=== PATIENT | female | born 1955 | race Caucasian/White ===

== ENCOUNTER → 2017-12-06 | Outpatient (CLI) | payer OTHER, MEDICARE ==
[2017-12-06 11:27] LABS: ALBUMIN 3.8 GM/DL (3.2-5.2); ALBUMIN/GLOBULIN RATIO 1.09 (1.00-1.93); ALKALINE PHOSPHATASE 89 U/L (45-117); ALT/SGPT 34 U/L (12-78); ANION GAP 6 MEQ/L (8-16); AST/SGOT 30 U/L (7-37); BILIRUBIN,TOTAL 0.6 MG/DL (0.2-1.0); BLOOD UREA NITROGEN 19 MG/DL (7-18); CALCIUM LEVEL 9.1 MG/DL (8.8-10.2); CARBON DIOXIDE LEVEL 32 MEQ/L (21-32); CHLORIDE LEVEL 104 MEQ/L (98-107); CREATININE FOR GFR 0.84 MG/DL (0.55-1.30); GLOMERULAR FILTRATION RATE > 60.0 (>45); GLUCOSE, FASTING 145 MG/DL (70-100); LDH LACTATE DEHYDROGENASE 158 U/L (84-246); PHOSPHORUS LEVEL 3.4 MG/DL (2.5-4.9); POTASSIUM SERUM 3.8 MEQ/L (3.5-5.1); SODIUM LEVEL 142 MEQ/L (136-145); TOTAL PROTEIN 7.3 GM/DL (6.4-8.2)
[2017-12-06 11:31] LABS: ESTIMATED AVERAGE GLUCOSE 194 MG/DL (60-110); HEMOGLOBIN A1c 8.4 %
== END ==
LOC: M LAB 09:59
DX: E11.40 Type 2 diabetes mellitus with diabetic neuropathy, unspecified (principal); I10 Essential (primary) hypertension
CPT/HCPCS: 83615

== ENCOUNTER → 2018-09-10 | Outpatient (REF) | payer OTHER ==
[2018-09-10 17:00] LABS: APPEARANCE, URINE CLEAR (CLEAR); BACTERIA, URINE AUTO NEGATIVE (NEGATIVE); BILIRUBIN, URINE AUTO NEGATIVE (NEGATIVE); BLOOD, URINE BLOOD NEGATIVE (NEGATIVE); COLOR, URINE YELLOW (YELLOW); GLUCOSE, URINE (UA) AUTO NEGATIVE (NEGATIVE); KETONE, URINE AUTO NEGATIVE (NEGATIVE); LEUKOCYTE ESTERASE, URINE AUTO NEGATIVE (NEGATIVE); MUCUS, URINE SMALL (NEGATIVE); NITRITE, URINE AUTO NEGATIVE (NEGATIVE); PROTEIN, URINE AUTO NEGATIVE (NEGATIVE); RBC, URINE AUTO 2 /HPF (0-3); SQUAMOUS EPITHELIAL CELL UR AU 0 /HPF (0-6); UROBILINOGEN, URINE AUTO 0.2 mg/dL (0.0-2.0); WBC, URINE AUTO 1 /HPF (0-3)
== END ==
LOC: M LAB REF 16:07
DX: R39.15 Urgency of urination (principal); R35.0 Frequency of micturition

== ENCOUNTER → 2018-12-18 | Outpatient (REF) | payer MEDICARE ==
[2018-12-18 12:58] LABS: CREATININE, URINE 65.4 MG/DL; MALB URINE SIEMENS 82.4 MG/L; MAU/CREAT RATIO 125.9 MCG/MG (0.0-30.0)
[2018-12-18 13:54] LABS: ALBUMIN 3.9 GM/DL (3.2-5.2); ALT/SGPT 37 U/L (12-78); BILIRUBIN,TOTAL 0.6 MG/DL (0.2-1.0); BLOOD UREA NITROGEN 12 MG/DL (7-18); CALCIUM LEVEL 9.3 MG/DL (8.8-10.2); CARBON DIOXIDE LEVEL 27 MEQ/L (21-32); CHLORIDE LEVEL 103 MEQ/L (98-107); CHOLESTEROL LEVEL 211 MG/DL (<200); CHOLESTEROL RISK RATIO 4.489 (<5); CREATININE FOR GFR 0.79 MG/DL (0.55-1.30); GLOMERULAR FILTRATION RATE > 60.0 (>45); GLUCOSE, FASTING 187 MG/DL (70-100); HDL CHOLESTEROL 47 MG/DL (>40); LDL CHOLESTEROL 139 MG/DL (<100); NON-HDL-C 164 MG/DL; POTASSIUM SERUM 3.7 MEQ/L (3.5-5.1); SODIUM LEVEL 141 MEQ/L (136-145); TOTAL PROTEIN 7.5 GM/DL (6.4-8.2); TRIGLYCERIDES LEVEL 126 MG/DL (<150)
[2018-12-18 14:45] LABS: HEMOGLOBIN A1c 10.5 %
== END ==
LOC: M SFHCPLAZ 09:46
PROVIDERS: ATTEND Family Medicine
DX: I10 Essential (primary) hypertension (principal); E11.9 Type 2 diabetes mellitus without complications; E78.2 Mixed hyperlipidemia

== ENCOUNTER → 2019-01-22 | Outpatient (REF) | payer OTHER ==
[2019-01-22 14:12] LABS: MAU/CREAT RATIO 35.9 MCG/MG (0.0-30.0)
== END ==
LOC: M SFHCPLAZ 10:12
PROVIDERS: ATTEND Family Medicine
DX: R80.9 Proteinuria, unspecified (principal)

== ENCOUNTER → 2019-04-09 | Outpatient (CLI) | payer OTHER | LOC: M LAB 15:44 | PROVIDERS: ATTEND Podiatrist Foot & Ankle Surgery | DX: M10.9 Gout, unspecified (principal) ==

== ENCOUNTER → 2019-04-10 | Outpatient (REF) | payer OTHER ==
[2019-04-10 11:04] LABS: BLOOD UREA NITROGEN 24 MG/DL (7-18); CALCIUM LEVEL 8.8 MG/DL (8.8-10.2); CARBON DIOXIDE LEVEL 29 MEQ/L (21-32); CHLORIDE LEVEL 105 MEQ/L (98-107); CREATININE FOR GFR 0.96 MG/DL (0.55-1.30); GLOMERULAR FILTRATION RATE > 60.0 (>45); GLUCOSE, FASTING 256 MG/DL (70-100); POTASSIUM SERUM 3.6 MEQ/L (3.5-5.1); SODIUM LEVEL 142 MEQ/L (136-145)
[2019-04-10 11:05] LABS: HEMOGLOBIN A1c 12.2 %
== END ==
LOC: M SFHCPLAZ 08:20
PROVIDERS: ATTEND Family Medicine
DX: E11.9 Type 2 diabetes mellitus without complications (principal); I10 Essential (primary) hypertension

== ENCOUNTER 2019-05-22 16:17 | Emergency (ER) | payer OTHER ==
[~2019-05-22] VITALS: Ht 170.2 cm; Wt 110.0 kg
[2019-05-22] MEDS ORDERED: AMLO5TAB6 (16:53)
[2019-05-22] MEDS ORDERED: MONT10TA2 (16:53)
[2019-05-22] MEDS ORDERED: OCUVCAP2 PO (16:53)
[2019-05-22] MEDS ORDERED: METO1TAB32 (16:53)
[2019-05-22] MEDS ORDERED: LOSA100T5 (16:53)
[2019-05-22] MEDS ORDERED: METF-791 (16:53)
[2019-05-22] MEDS ORDERED: DULO1CAP6 (16:53)
[2019-05-22] MEDS ORDERED: ROSU5TAB5 (16:53)
[2019-05-22] MEDS ORDERED: VITA200021 PO (16:53)
[2019-05-22] MEDS ORDERED: METOPROLOL SUCC *XL* 25MG TAB (TopROL *XL*) PO ONE (17:30)
[2019-05-22] MEDS ORDERED: amLODIPine 5 MG TAB PO ONE (17:30)
[2019-05-22 17:32] VITALS: BP 178/77
[2019-05-22 17:46] LABS: HEMATOCRIT 40.8 % (36.0-47.0); HEMOGLOBIN 13.2 g/dl (12.0-15.5); MEAN CORPUSCULAR HGB CONC 32.4 g/dl (32.0-36.5); MEAN CORPUSCULAR VOLUME 83.6 fl (80.0-96.0); PLATELET COUNT, AUTOMATED 183 10^3/uL (150-450); RED BLOOD COUNT 4.88 10^6/uL (4.00-5.40); WHITE BLOOD COUNT 7.9 10^3/uL (4.0-10.0)
[2019-05-22] MEDS ORDERED: ACETAMINOPHEN TAB 650MG DOSE (2X325MG) PO ONE (19:30)
--- NOTE | 2019-05-22 19:40 | REP ---
REASON: Hypertension. The technique utilized in obtaining the radiograph has magnified the cardiac silhouette and accentuated the interstitial markings. The superior mediastinal structures are midline. The cardiac silhouette is unremarkable in size, shape, and position. The diaphragmatic surfaces of the lungs are regular, and the costophrenic angles are clear. The pulmonary saxena are clear. The imaged osseous structures are intact. IMPRESSION: There is no acute cardiopulmonary disease. Electronically Signed by Rolan Mendez DO 05/23/2019 08:59 A
[2019-05-22 21:32] VITALS: BP 172/70
--- NOTE | 2019-05-23 08:09 | ECGEPIP ---
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
== END 2019-05-22 21:34 | disposition home or self-care (01) ==
LOC: M ED 16:17
DX: I10 Essential (primary) hypertension (principal); E11.9 Type 2 diabetes mellitus without complications; J45.909 Unspecified asthma, uncomplicated; E78.5 Hyperlipidemia, unspecified; F43.10 Post-traumatic stress disorder, unspecified; Z79.899 Other long term (current) drug therapy; Z79.84 Long term (current) use of oral hypoglycemic drugs; Z88.0 Allergy status to penicillin; Z88.1 Allergy status to other antibiotic agents; Z88.2 Allergy status to sulfonamides; Z88.5 Allergy status to narcotic agent

== ENCOUNTER → 2019-07-09 | Outpatient (REF) | payer OTHER ==
[~2019-07-09] MED LIST: AMLO5TAB6; DULO1CAP6; LOSA100T5; METF-791; METO1TAB32; MONT10TA2; OCUVCAP2 PO; ROSU5TAB5; VITA200021 PO
== END ==
LOC: M SFHCPLAZ 10:03
PROVIDERS: ATTEND Family Medicine
DX: L91.8 Other hypertrophic disorders of the skin (principal)

== ENCOUNTER → 2019-07-10 | Outpatient (REF) | payer OTHER ==
[2019-07-10 17:36] LABS: HEMOGLOBIN A1c 9.1 %
== END ==
LOC: M SFHCPLAZ 10:15
PROVIDERS: ATTEND Family Medicine
DX: E11.9 Type 2 diabetes mellitus without complications (principal)

== ENCOUNTER → 2019-09-15 | Outpatient (CLI) | payer OTHER ==
--- NOTE | 2019-09-15 10:23 | REP ---
ULTRASOUND RIGHT UPPER POSTERIOR CHEST WALL: Real-time sonographic evaluation of right upper posterior chest wall performed at the site of the palpable lump. No discrete cystic or solid mass is seen. At the location of the palpable lump the subcutaneous fat appears diffusely thickened in this region but there is no sonographic evidence of focal lipoma or other mass. IMPRESSION: At the site of the palpable lump in the right posterior chest wall superiorly, there is thickened subcutaneous fat layer in this region without a focal encapsulated solid mass, cyst or fluid collection. Electronically Signed by Melquiades Roche MD 09/15/2019 12:01 P
== END ==
LOC: M RAD 09:26
PROVIDERS: ATTEND Family Medicine
DX: R22.2 Localized swelling, mass and lump, trunk (principal)

== ENCOUNTER → 2019-10-12 | Outpatient (CLI) | payer OTHER ==
[2019-10-12 14:55] LABS: HEMOGLOBIN A1c 8.5 %
== END ==
LOC: M LAB 11:24
PROVIDERS: ATTEND Family Medicine
DX: E11.9 Type 2 diabetes mellitus without complications (principal)

== ENCOUNTER 2019-11-17 16:23 | Emergency (ER) | payer OTHER ==
[~2019-11-17] VITALS: Ht 172.7 cm; Wt 110.6 kg
[2019-11-17] MEDS ORDERED: BUPR150T3 (16:31)
[2019-11-17] MEDS ORDERED: TRES1INJ (16:31)
--- NOTE | 2019-11-17 17:58 | REPVR ---
PROCEDURE INFORMATION: Exam: CT Head Without Contrast Exam date and time: 11/17/2019 5:34 PM Age: 64 years old Clinical indication: Pain; Headache; Additional info: Head neck pain after injury TECHNIQUE: Imaging protocol: Computed tomography of the head without contrast. Radiation optimization: All CT scans at this facility use at least one of these dose optimization techniques: automated exposure control; mA and/or kV adjustment per patient size (includes targeted exams where dose is matched to clinical indication); or iterative reconstruction. COMPARISON: No relevant prior studies available. FINDINGS: Brain: No acute intracranial hemorrhage, cerebral edema, or midline shift. Ventricles: No hydrocephalus. Bones/joints: No acute fracture. Sinuses: No acute sinusitis. Mastoid air cells: Visualized mastoid air cells are well aerated. Soft tissues: Unremarkable. IMPRESSION: No acute intracranial abnormality. Electronically signed by: Zion Howell On 11/17/2019 17:58:09 PM
--- NOTE | 2019-11-17 18:01 | REPVR ---
PROCEDURE INFORMATION: Exam: CT Cervical Spine Without Contrast Exam date and time: 11/17/2019 5:34 PM Age: 64 years old Clinical indication: Neck pain; Additional info: Head neck pain after injury TECHNIQUE: Imaging protocol: Computed tomography images of the cervical spine without contrast. Radiation optimization: All CT scans at this facility use at least one of these dose optimization techniques: automated exposure control; mA and/or kV adjustment per patient size (includes targeted exams where dose is matched to clinical indication); or iterative reconstruction. COMPARISON: No relevant prior studies available. FINDINGS: Vertebrae: No acute fracture. Normal alignment. Discs/Spinal canal/Neural foramina: Moderate degenerative changes of the cervical spine are present. There is no severe spinal canal stenosis. Multilevel neural foraminal narrowing from uncinate spurring and facet arthropathy is noted. Soft tissues: Unremarkable. Lungs: Lung apices are normal. IMPRESSION: No acute abnormality. Electronically signed by: Zion Howell On 11/17/2019 18:01:10 PM
[2019-11-17 21:12] VITALS: BP 150/73
== END 2019-11-17 21:20 | disposition home or self-care (01) ==
LOC: M ED 16:23
DX: S06.0X0A Concussion without loss of consciousness, initial encounter (principal); S16.1XXA Strain of muscle, fascia and tendon at neck level, initial encounter; V00.221A Fall from sled, initial encounter; Y92.89 Other specified places as the place of occurrence of the external cause; Y93.23 Activity, snow (alpine) (downhill) skiing, snowboarding, sledding, tobogganing and snow tubing; E11.9 Type 2 diabetes mellitus without complications; I10 Essential (primary) hypertension; Z79.899 Other long term (current) drug therapy; Z79.4 Long term (current) use of insulin; Z88.0 Allergy status to penicillin; Z88.1 Allergy status to other antibiotic agents; Z88.2 Allergy status to sulfonamides; Z88.5 Allergy status to narcotic agent; Z88.8 Allergy status to other drugs, medicaments and biological substances

== ENCOUNTER → 2020-01-12 | Outpatient (REF) | payer OTHER ==
[~2020-01-12] MED LIST changes: +BUPR150T3; -MONT10TA2; +MONT10TA4; +TRES1INJ
[2020-01-12 18:25] LABS: BLOOD UREA NITROGEN 12 MG/DL (7-18); CALCIUM LEVEL 8.9 MG/DL (8.8-10.2); CARBON DIOXIDE LEVEL 28 MEQ/L (21-32); CHLORIDE LEVEL 104 MEQ/L (98-107); CREATININE FOR GFR 0.93 MG/DL (0.55-1.30); GLOMERULAR FILTRATION RATE > 60.0 (>45); GLUCOSE, FASTING 418 MG/DL (70-100); POTASSIUM SERUM 4.1 MEQ/L (3.5-5.1); SODIUM LEVEL 140 MEQ/L (136-145)
== END ==
LOC: M SFHCPLAZ 14:34
PROVIDERS: ATTEND Family Medicine
DX: E11.9 Type 2 diabetes mellitus without complications (principal); I10 Essential (primary) hypertension

== ENCOUNTER → 2020-04-14 | Outpatient (REF) | payer OTHER ==
[~2020-04-14] MED LIST changes: -METF-791; +METF-838
[2020-04-14 12:28] LABS: ALBUMIN 3.7 GM/DL (3.2-5.2); ALT/SGPT 48 U/L (12-78); BILIRUBIN,TOTAL 0.9 MG/DL (0.2-1.0); BLOOD UREA NITROGEN 16 MG/DL (7-18); CALCIUM LEVEL 9.9 MG/DL (8.8-10.2); CARBON DIOXIDE LEVEL 28 MEQ/L (21-32); CHLORIDE LEVEL 106 MEQ/L (98-107); CHOLESTEROL LEVEL 183 MG/DL (<200); CHOLESTEROL RISK RATIO 4.575 (<5); GLOMERULAR FILTRATION RATE > 60.0 (>45); GLUCOSE, FASTING 236 MG/DL (70-100); HDL CHOLESTEROL 40 MG/DL (>40); LDL CHOLESTEROL 116 MG/DL (<100); NON-HDL-C 143 MG/DL; POTASSIUM SERUM 4.2 MEQ/L (3.5-5.1); SODIUM LEVEL 138 MEQ/L (136-145); TOTAL PROTEIN 7.6 GM/DL (6.4-8.2); TRIGLYCERIDES LEVEL 137 MG/DL (<150)
[2020-04-14 13:09] LABS: MAU/CREAT RATIO 181.6 MCG/MG (0.0-30.0)
[2020-04-14 13:24] LABS: HEMOGLOBIN A1c 9.6 %
== END ==
LOC: M SFHCPLAZ 08:39
PROVIDERS: ATTEND Family Medicine
DX: I10 Essential (primary) hypertension (principal); E78.2 Mixed hyperlipidemia; E11.9 Type 2 diabetes mellitus without complications

== ENCOUNTER → 2020-07-13 | Outpatient (CLI) | payer MEDICARE, OTHER ==
[~2020-07-13] MED LIST changes: +AMLO1TAB24; -AMLO5TAB6
[2020-07-13 14:48] LABS: HEMOGLOBIN A1c 9.9 %
== END ==
LOC: M PLALAB 10:05
PROVIDERS: ATTEND Family Medicine
DX: E11.9 Type 2 diabetes mellitus without complications (principal); Z79.84 Long term (current) use of oral hypoglycemic drugs

== ENCOUNTER → 2020-08-29 | Outpatient (REF) | payer MEDICARE | LOC: M SFHCPLAZ 09:58 | PROVIDERS: ATTEND Physician Assistant | DX: N30.01 Acute cystitis with hematuria (principal) ==

== ENCOUNTER → 2020-09-27 | Outpatient (CLI) | payer MEDICARE ==
[~2020-09-27] MED LIST changes: -MONT10TA4; +MONT5TAB2
--- NOTE | 2020-09-28 09:16 | REPMRS ---
Patient History The patient states she has not had a clinical breast exam in over a year. Patient is postmenopausal and is nulliparous. No known family history of cancer. Digital Woman Screen Mammo: September 27, 2020 - Exam #: [id number] Bilateral CC and MLO view(s) were taken. Technologist: Flor Beltran, Technologist Prior study comparison: August 06, 2017, bilateral digital mammo screening bilat, performed at Dr. Oli Jeff [facility]. June 06, 2016, bilateral digital mammo screening bilat, performed at Dr. Oli Jeff [facility]. FINDINGS: There are scattered fibroglandular densities. The Volpara volumetric breast density category is:B. There has been no change in the appearance of the mammogram from the prior studies. There is a mild amount of scattered fibroglandular density which is fairly symmetric. There is no interval development of dominant mass, architectural distortion, or grouped microcalcification suggestive of malignancy. 3-D tomosynthesis shows no additional findings. Assessment: BI-RADS/ACR category 1 mammogram. Negative Mammogram. Recommendation Routine screening mammogram of both breasts in 1 year (for women over age 40). This patient's [facility] Lifetime Breast Cancer Risk is estimated at 4.2 %. This mammogram was interpreted with the aid of an FDA-approved computer-aided dectection system. Electronically Signed By: Theodore Alarcon MD 09/28/20 0915
== END ==
LOC: M WHC 07:49
PROVIDERS: ATTEND Family Medicine
DX: Z12.31 Encounter for screening mammogram for malignant neoplasm of breast (principal)

== ENCOUNTER → 2020-12-16 | Outpatient (REF) | payer MEDICARE, OTHER ==
[~2020-12-16] MED LIST changes: +AMLO1TAB25 PO; +AZO-95TA3 PO; +BUPR150T12; -BUPR150T3; +CIPR-249 PO; +D31000TA2 PO; -DULO1CAP6; +DULO1CAP6 PO; +LOSA100T50 PO; -METF-838; +METF-838 PO; -METO1TAB32; +METO1TAB32 PO; +MONT10TA10 PO; -MONT5TAB2; +NOVOINJ3 SC; -ROSU5TAB5; +ROSU5TAB5 PO; -TRES1INJ; +TRES1INJ SC
[2020-12-16 14:16] LABS: BLOOD UREA NITROGEN 15 MG/DL (7-18); CALCIUM LEVEL 9.6 MG/DL (8.8-10.2); CARBON DIOXIDE LEVEL 29 MEQ/L (21-32); CHLORIDE LEVEL 107 MEQ/L (98-107); CREATININE FOR GFR 0.87 MG/DL (0.55-1.30); GLOMERULAR FILTRATION RATE > 60.0 (>45); GLUCOSE, FASTING 151 MG/DL (70-100); POTASSIUM SERUM 3.8 MEQ/L (3.5-5.1); SODIUM LEVEL 141 MEQ/L (136-145)
[2020-12-16 14:49] LABS: HEMOGLOBIN A1c 10.1 %
[2020-12-16 14:53] LABS: MAU/CREAT RATIO 446.5 MCG/MG (0.0-30.0)
== END ==
LOC: M PLALAB 11:07
PROVIDERS: ATTEND Family Medicine
DX: R80.9 Proteinuria, unspecified (principal); E11.9 Type 2 diabetes mellitus without complications; I10 Essential (primary) hypertension

== ENCOUNTER 2020-12-18 15:28 | Inpatient (IN) | payer MEDICARE, OTHER ==
[~2020-12-18] VITALS: Ht 170.2 cm; Wt 110.1 kg
[~2020-12-18 15:28] MED LIST changes: -AMLO1TAB25 PO; -AZO-95TA3 PO; -CIPR-249 PO; -D31000TA2 PO; -LOSA100T50 PO; -NOVOINJ3 SC
[2020-12-18] MEDS ORDERED: MORPHINE 4 MG/ML 1ML VIAL/SYRINGE (J2270) IV ONE (16:00)
[2020-12-18] MEDS ORDERED: ACETAMINOPHEN TAB 650MG DOSE (2X325MG) PO ONE (16:05)
[2020-12-18 16:24] LABS: BASO % 0.4 % (0.0-1.0); EOS % 0.4 % (0.0-3.0); HEMATOCRIT 40.3 % (36.0-47.0); HEMOGLOBIN 12.8 g/dl (12.0-15.5); LYMPH # 1.3 10^3/uL (1.5-5.0); LYMPH % 11.7 % (24.0-44.0); MEAN CORPUSCULAR HEMOGLOBIN 25.6 pg (27.0-33.0); MEAN CORPUSCULAR HGB CONC 31.8 g/dl (32.0-36.5); MEAN CORPUSCULAR VOLUME 80.6 fl (80.0-96.0); MONO # 0.5 10^3/uL (0.0-0.8); MONO % 4.6 % (2.0-8.0); NEUTROPHILS % 82.3 % (36.0-66.0); PLATELET COUNT, AUTOMATED 158 10^3/uL (150-450); WHITE BLOOD COUNT 10.9 10^3/uL (4.0-10.0)
--- NOTE | 2020-12-18 16:33 | REP ---
INDICATION: trauma COMPARISON: None. TECHNIQUE: AP, lateral, bilateral oblique views. FINDINGS: Lateral swelling and age-related degenerative changes noted. No acute fracture or dislocation is appreciated. Ankle mortise intact. IMPRESSION: Swelling and degenerative changes. No acute fracture or dislocation. <Electronically signed by Donny Kaminski > 12/18/20 [id number]
--- NOTE | 2020-12-18 16:34 | REP ---
INDICATION: trauma COMPARISON: None. TECHNIQUE: AP, lateral, bilateral oblique views of the left knee. FINDINGS: Age-related changes noted. No acute fracture or dislocation. No definite effusion. IMPRESSION: Age-related degenerative changes. No acute fracture or dislocation. <Electronically signed by Donny Kaminski > 12/18/20 [id number]
[2020-12-18 16:36] LABS: INR 1.08; PROTHROMBIN TIME 14.2 SECONDS (12.5-14.3)
[2020-12-18 16:37] LABS: PARTIAL THROMBOPLASTIN TIME 31.9 SECONDS (24.2-38.5)
[2020-12-18 16:46] LABS: ALBUMIN 3.5 GM/DL (3.2-5.2); ALT/SGPT 29 U/L (12-78); BILIRUBIN,DIRECT 0.3 MG/DL (0.0-0.2); BLOOD UREA NITROGEN 15 MG/DL (7-18); CALCIUM LEVEL 9.4 MG/DL (8.8-10.2); CARBON DIOXIDE LEVEL 25 MEQ/L (21-32); CHLORIDE LEVEL 106 MEQ/L (98-107); CK-MB VALUE MASS < 1.0 NG/ML (<3.6); CPK CREATINE PHOSPHOKINASE 48 U/L (26-192); CREATININE FOR GFR 0.94 MG/DL (0.55-1.30); FREE T4 1.02 NG/DL (0.76-1.46); GLOMERULAR FILTRATION RATE > 60.0 (>45); GLUCOSE, FASTING 234 MG/DL (70-100); LIPASE 61 U/L (73-393); MB/CK RELATIVE INDEX 2.08 (< OR =4); SODIUM LEVEL 138 MEQ/L (136-145); TOTAL PROTEIN 7.2 GM/DL (6.4-8.2); TROPONIN I < 0.02 NG/ML (< 0.10)
[2020-12-18] MEDS ORDERED: ISOVUE-370 76% 100ML VIAL As Ordered ONE (17:53)
--- NOTE | 2020-12-18 18:29 | REPVR ---
PROCEDURE INFORMATION: Exam: CT Chest With Contrast; Diagnostic Exam date and time: 12/18/2020 5:59 PM Age: 65 years old Clinical indication: Injury or trauma; Fall; Blunt trauma (contusions or hematomas) TECHNIQUE: Imaging protocol: Diagnostic computed tomography of the chest with contrast. Radiation optimization: All CT scans at this facility use at least one of these dose optimization techniques: automated exposure control; mA and/or kV adjustment per patient size (includes targeted exams where dose is matched to clinical indication); or iterative reconstruction. Contrast material: ISOVUE 370; Contrast volume: 100 ml; Contrast route: INTRAVENOUS (IV); COMPARISON: US Chest echo B 09/15/2019 9:42 AM FINDINGS: Lungs: Unremarkable. No consolidation. No masses. Pleural spaces: Unremarkable. No pneumothorax. No pleural effusion. Heart: Unremarkable. No cardiomegaly. No pericardial effusion. Pulmonary arteries: There are no pulmonary emboli. Aorta: There is no aortic dissection or aneurysm. Lymph nodes: Unremarkable. No enlarged lymph nodes. Liver: Examination of the liver demonstrates a lobular surface contour, and enlargement of the left and caudate lobes, findings consistent with cirrhosis. Spleen: There is fncu-wq-ihhcbaep splenomegaly with a maximum span of 15 centimeters. No focal abnormalities demonstrated. Bones/joints: The spine demonstrates mild degenerative changes. The spine demonstrates mild degenerative changes. Soft tissues: Unremarkable. IMPRESSION: 1. There is no aortic dissection or aneurysm. 2. There are no pulmonary emboli. 3. No acute infiltrates. 4. Hepatic cirrhosis. 5. There is wynn-ta-qdkoozhy splenomegaly. Electronically signed by: Lexx Rider On 12/18/2020 18:29:36 PM
--- NOTE | 2020-12-18 18:35 | REPVR ---
PROCEDURE INFORMATION: Exam: CT Abdomen And Pelvis With Contrast Exam date and time: 12/18/2020 5:59 PM Age: 65 years old Clinical indication: Injury or trauma; Fall; Blunt; Generalized TECHNIQUE: Imaging protocol: Computed tomography of the abdomen and pelvis with contrast. Radiation optimization: All CT scans at this facility use at least one of these dose optimization techniques: automated exposure control; mA and/or kV adjustment per patient size (includes targeted exams where dose is matched to clinical indication); or iterative reconstruction. Contrast material: ISOVUE 370; Contrast volume: 100 ml; Contrast route: INTRAVENOUS (IV); COMPARISON: No relevant prior studies available. FINDINGS: Liver: Examination of the liver demonstrates a lobular surface contour, and enlargement of the left and caudate lobes, findings consistent with cirrhosis. Gallbladder and bile ducts: Normal. No calcified stones. No ductal dilation. Pancreas: Normal. No ductal dilation. Spleen: There is moderate splenomegaly with a maximum span of 15 centimeters. No focal abnormalities demonstrated. Adrenal glands: Normal. No mass. Kidneys and ureters: Perinephric inflammatory changes on the left associated with mild dilatation of the left renal pelvis and a suggestion of hazy decreased density in the posteromedial renal parenchyma. Findings may be posttraumatic or indicate pyelonephritis in the appropriate clinical setting. Stomach and bowel: Unremarkable. No obstruction. No mucosal thickening. Appendix: No evidence of appendicitis. Intraperitoneal space: Unremarkable. No free air. No significant fluid collection. Vasculature: The aortoiliac vessels demonstrate mild atherosclerotic calcification. Lymph nodes: Unremarkable. No enlarged lymph nodes. Urinary bladder: There is thickening of the bladder wall with perivesicular inflammatory changes consistent with acute cystitis. Reproductive: There has been a hysterectomy. Bones/joints: Cuzn-lr-[id number] central spinal stenosis L2-L3, L3-L4. Bilateral facet joint arthropathy and disc space narrowing L5-S1. Soft tissues: Unremarkable. IMPRESSION: 1. Examination of the liver demonstrates a lobular surface contour, and enlargement of the left and caudate lobes, findings consistent with cirrhosis. 2. There is moderate splenomegaly with a maximum span of 15 centimeters. No focal abnormalities demonstrated. 3. There has been a hysterectomy. 4. Perinephric inflammatory changes on the left associated with mild dilatation of the left renal pelvis and a suggestion of hazy decreased density in the posteromedial renal parenchyma. Findings may be posttraumatic or indicate pyelonephritis in the appropriate clinical setting. 5. There is thickening of the bladder wall with perivesicular inflammatory changes consistent with acute cystitis. Electronically signed by: Lexx Rider On 12/18/2020 18:35:41 PM
[2020-12-18] MEDS ORDERED: IBUPROFEN 600MG TAB PO ONE (19:00)
[2020-12-18] MEDS ORDERED: CIPROFLOXACIN 400 MG in IV 1 EA IV ONE (19:10)
[2020-12-18] MEDS ORDERED: CIPR-249 PO (19:15)
--- NOTE | 2020-12-18 19:45 | ECGEPIP ---
[facility] - ED Test Date: 2020-12-18 Pat Name: KRYSTAL SEALS Department: Room: - Gender: Female Carrot Tier: CAS : 1955 Requested By: Carli Rivera Order Number: [id number] Reading MD: Carli Rivera Measurements Intervals [place] Rate: 109 P: 14 SC: 162 QRS: 136 QRSD: 90 T: 75 QT: 336 QTc: 452 Interpretive Statements Sinus tachycardia with premature supraventricular complexes Left posterior fascicular block Right axis deviation Nonspecific ST T wave changes cw 05/22/[address] T wave changes Electronically Signed on 12-18-2020 19:46:10 EST by Carli Rivera
[2020-12-18] MEDS ORDERED: ONDANSETRON 4MG/2ML VIAL IV ONE (20:40)
[2020-12-18] MEDS ORDERED: ACETAMINOPHEN TAB 650MG DOSE (2X325MG) PO PRN (21:45)
[2020-12-18] MEDS ORDERED: MORPHINE 4 MG/ML 1ML VIAL/SYRINGE (J2270) IV PRN (21:50)
[2020-12-18] MEDS ORDERED: MORPHINE 30 MG TAB **MSIR PO PRN (21:50)
[2020-12-18] MEDS ORDERED: GLUCAGON INJ 1MG VIAL SC PRN (21:50)
[2020-12-18] MEDS ORDERED: ENOXAPARIN 40MG/0.4ML SYRINGE (J1650 PER 10MG) SC ONE (21:50)
[2020-12-18] MEDS ORDERED: PHENAZOPYRIDINE 100 MG TAB PO ONE (21:50)
[2020-12-18] MEDS ORDERED: GLUCOSE 4GM CHEW TABLET PO PRN (21:50)
[2020-12-18] MEDS ORDERED: DEXTROSE 50% 50 ML SYRINGE IV PRN (21:50)
[2020-12-18] MEDS ORDERED: AMLO1TAB25 PO (22:02)
[2020-12-18] MEDS ORDERED: D31000TA2 PO (22:02)
[2020-12-18] MEDS ORDERED: LOSA100T50 PO (22:02)
[2020-12-18] MEDS ORDERED: NOVOINJ3 SC (22:05)
[2020-12-18] MEDS ORDERED: AZO-95TA3 PO (22:05)
[2020-12-18 22:29] LABS: RSV AMPLIFICATION NEGATIVE (NEGATIVE)
--- NOTE | 2020-12-18 22:45 | HPEPDOC ---
[facility] Medical History & Physical Date of Admission Dec 18, 2020 Date of Service: Dec 18, 2020 History and Physical CHIEF COMPLAINT: Urinary frequency and left-sided flank pain since night HISTORY OF PRESENT ILLNESS: 65-year-old female presents to emergency room with worsening pain on the left flank, low-grade temperature at home, chills and increasing urinary frequency since last . Patient was babysitting 2 children with the parents coming back from [place]. She slept on the couch on her left side and in the middle of night had increased urinary frequency but persistent pain on her left flank. He rated at 10 out of 10 and was constant, squeezing. She was concerned about a urinary tract infection that had not had so much urine output before .she admits to dysuria, urgency, frequency. She went to the pharmacy and was taking Pyridium tablets 3tablets on Saturday but none today. Patient had a difficult time getting up due to severe pain. She also had recently fallen when she tripped on a panda paw which was a toy for the pool that the children wanted to sleep with. She complained of musculoskeletal pain on the left side without any radiation, pleuritic in nature, worse when she tries to move without diaphoresis, feeling of impending doom, palpitations, lightheadedness or dizziness. She had developed our right ankle sprain and had been using a boot and taking ibuprofen and Tylenol at home. She had blood work done at Dr. Porter's office on Saturday morning for her diabetes, but did not get a call about her urinalysis. She has had worsening pain with decreased appetite and had an episode of nausea and vomiting today, prompting her to come into the emergency room for evaluation. In emergency room, patient had a temperature 102.5, tachycardic with 117 bpm, tachypneic with respiratory rate of 24, and complained of Chest pain on the left after her mechanical fall. CT chest, abdomen and pelvis showed no pulmonary embolism, positive pyelonephritis and cystitis. An incidental finding of liver cirrhosis and splenomegaly . Due to allergies to penicillin, Patient was given ciprofloxacin and morphine for pain. Hospitalist was asked to admit the patient for acute left-sided pyelonephritis, hypertensive urgency, musculoskeletal chest pain with negative troponin and EKG, and right ankle sprain. PAST MEDICAL HISTORY: Diabetes, hypertension, hyperlipidemia, mild intermittent asthma, vitamin D deficiency, PTSD, depression, anxiety .liver cirrhosis. moderate splenomegaly with a maximum span of 15 centimeters. aortoiliac atherosclerosis. cystitis. R hysterectomy. Gqnt-ws-xnyoyyic central spinal stenosis L2-L3, L3-L4. Bilateral facet joint arthropathy and disc space narrowing L5-S1. PAST SURGICAL HISTORY: Hysterectomy, colonoscopy for tubular adenoma resection, left knee aspiration SOCIAL HISTORY: FAMILY HISTORY: Father , unknown medical problems. Mother alive at on medical problems ALLERGIES: Please see below. REVIEW OF SYSTEMS: 10 point review of systems negative aside from positive findings in HPI HOME MEDICATIONS: Please see below. PHYSICAL EXAMINATION: VITAL SIGNS: See below GENERAL APPEARANCE: Awake, alert, oriented 3, answering questions appropriately. No conversational dyspnea. No pallor, icterus or jaundice HEENT: No JVD, thyromegaly extraocular muscles are intact. Moist mucous membranes. No cervical lymphadenopathy. Pharyngeal erythema or tonsillar exudates. No stridor CARDIOVASCULAR: S1, S2 regular rate rhythm, no murmurs, rubs or gallops LUNGS: Air entry is equal bilaterally. No adventitious breath sounds clear to au scultation bronchial breath sounds ABDOMEN: Positive bowel sounds, soft . Left CVA tenderness. No rebound, guarding, mild splenomegaly EXTREMITIES: No cyanosis or clubbing. Range of motion limited due to right ankle sprain with minimal swelling. No significant erythema. LABORATORY DATA: See below. IMAGING: Exam: CT Abdomen And Pelvis With Contrast Exam date and time: 12/18/2020 5:59 PM Age: 65 years old Clinical indication: Injury or trauma; Fall; Blunt; Generalized TECHNIQUE: Imaging protocol: Computed tomography of the abdomen and pelvis with contrast. Radiation optimization: All CT scans at this facility use at least one of these dose optimization techniques: automated exposure control; mA and/or kV adjustment per patient size (includes targeted exams where dose is matched to clinical indication); or iterative reconstruction. Contrast material: ISOVUE 370; Contrast volume: 100 ml; Contrast route: INTRAVENOUS (IV); COMPARISON: No relevant prior studies available. FINDINGS: Liver: Examination of the liver demonstrates a lobular surface contour, and enlargement of the left and caudate lobes, findings consistent with cirrhosis. Gallbladder and bile ducts: Normal. No calcified stones. No ductal dilation. Pancreas: Normal. No ductal dilation. Spleen: There is moderate splenomegaly with a maximum span of 15 centimeters. No focal abnormalities demonstrated. Adrenal glands: Normal. No mass. Kidneys and ureters: Perinephric inflammatory changes on the left associated with mild dilatation of the left renal pelvis and a suggestion of hazy decreased density in the posteromedial renal parenchyma. Findings may be posttraumatic or indicate pyelonephritis in the appropriate clinical setting. Stomach and bowel: Unremarkable. No obstruction. No mucosal thickening. Appendix: No evidence of appendicitis. Intraperitoneal space: Unremarkable. No free air. No significant fluid collection. Vasculature: The aortoiliac vessels demonstrate mild atherosclerotic calcification. Lymph nodes: Unremarkable. No enlarged lymph nodes. Urinary bladder: There is thickening of the bladder wall with perivesicular inflammatory changes consistent with acute cystitis. Reproductive: There has been a hysterectomy. Bones/joints: Vjrv-iv-yzyhvjme central spinal stenosis L2-L3, L3-L4. Bilateral facet joint arthropathy and disc space narrowing L5-S1. Soft tissues: Unremarkable. IMPRESSION: 1. Examination of the liver demonstrates a lobular surface contour, and enlargement of the left and caudate lobes, findings consistent with cirrhosis. 2. There is moderate splenomegaly with a maximum span of 15 centimeters. No focal abnormalities demonstrated. 3. There has been a hysterectomy. 4. Perinephric inflammatory changes on the left associated with mild dilatation of the left renal pelvis and a suggestion of hazy decreased density in the posteromedial renal parenchyma. Findings may be posttraumatic or indicate pyelonephritis in the appropriate clinical setting. 5. There is thickening of the bladder wall with perivesicular inflammatory changes consistent with acute cystitis. Electronically signed by: Lexx Rider On 12/18/2020 18:35:41 PM Exam: CT Chest With Contrast; Diagnostic Exam date and time: 12/18/2020 5:59 PM Age: 65 years old Clinical indication: Injury or trauma; Fall; Blunt trauma (contusions or hematomas) TECHNIQUE: Imaging protocol: Diagnostic computed tomography of the chest with contrast. Radiation optimization: All CT scans at this facility use at least one of these dose optimization techniques: automated exposure control; mA and/or kV adjustment per patient size (includes targeted exams where dose is matched to clinical indication); or iterative reconstruction. Contrast material: ISOVUE 370; Contrast volume: 100 ml; Contrast route: INTRAVENOUS (IV); COMPARISON: US Chest echo B 09/15/2019 9:42 AM FINDINGS: Lungs: Unremarkable. No consolidation. No masses. Pleural spaces: Unremarkable. No pneumothorax. No pleural effusion. Heart: Unremarkable. No cardiomegaly. No pericardial effusion. Pulmonary arteries: There are no pulmonary emboli. Aorta: There is no aortic dissection or aneurysm. Lymph nodes: Unremarkable. No enlarged lymph nodes. Liver: Examination of the liver demonstrates a lobular surface contour, and enlargement of the left and caudate lobes, findings consistent with cirrhosis. Spleen: There is mjss-iq-kfkcwxjw splenomegaly with a maximum span of 15 centimeters. No focal abnormalities demonstrated. Bones/joints: The spine demonstrates mild degenerative changes. The spine demonstrates mild degenerative changes. Soft tissues: Unremarkable. IMPRESSION: 1. There is no aortic dissection or aneurysm. 2. There are no pulmonary emboli. 3. No acute infiltrates. 4. Hepatic cirrhosis. 5. There is ohgl-ys-eudpqwze splenomegaly. Electronically signed by: Lexx Rider On 12/18/2020 18:29:36 PM INDICATION: trauma COMPARISON: None. TECHNIQUE: AP, lateral, bilateral oblique views. FINDINGS: Lateral swelling and age-related degenerative changes noted. No acute fracture or dislocation is appreciated. Ankle mortise intact. IMPRESSION: Swelling and degenerative changes. No acute fracture or dislocation. <Electronically signed by Donny Kaminski > 12/18/20 1629 INDICATION: trauma COMPARISON: None. TECHNIQUE: AP, lateral, bilateral oblique views of the left knee. FINDINGS: Age-related changes noted. No acute fracture or dislocation. No definite effusion. IMPRESSION: Age-related degenerative changes. No acute fracture or dislocation. <Electronically signed by Donny Kaminski > 12/18/20 1630 MICROBIOLOGY: Please see below. ASSESSMENT/PLAN: 65-year-old female presents to emergency room with worsening pain on the left flank, low-grade temperature at home, chills and increasing urinary frequency since last . Patient was babysitting 2 children with the parents coming back from [place]. She slept on the couch on her left side and in the middle of night had increased urinary frequency but persistent pain on her left flank. He rated at 10 out of 10 and was constant, squeezing. She was concerned about a urinary tract infection that had not had so much urine output before .she admits to dysuria, urgency, frequency. She went to the pharmacy and was taking Pyridium tablets 3tablets on Saturday but none today. Patient had a difficult time getting up due to severe pain. She also had recently fallen when she tripped on a panda paw which was a toy for the pool that the children wanted to sleep with. She had developed our right ankle sprain and had been using a boot and taking ibuprofen and Tylenol at home. She had blood work done at Dr. Porter's office on Saturday morning for her diabetes, but did not get a call about her urinalysis. She has had worsening pain with decreased appetite and had an episode of nausea and vomiting today, prompting her to come into the emergency room for evaluation. In emergency room, patient had a temperature 102.5, tachycardic with 117 bpm, tachypneic with respiratory rate of 24, and complained of Chest pain on the left after her mechanical fall. CT chest, abdomen and pelvis showed no pulmonary embolism, positive pyelonephritis and cystitis. An incidental finding of liver cirrhosis and splenomegaly . Due to allergies to penicillin, Patient was given ciprofloxacin and morphine for pain. Hospitalist was asked to admit the patient for acute left-sided pyelonephritis, hypertensive urgency, musculoskeletal chest pain with negative troponin and EKG, and right ankle sprain. Acute left-sided pyelonephritis -Patient has a penicillin allergy may give Levaquin IV daily, renally dosed as needed for 10-14 days. When necessary morphine for pain, IV Toradol with IV fluids to prevent nephrotoxicity Pyridium for symptomatic relief, antiemetics if needed for nausea. Await urine culture and blood culture results and de-escalate antibiotics once urine cultures are finalized Right Ankle sprain -Touch toe weightbearing. Longboat and crutches, elevate affected extremity and apply ice for symptomatic relief. Nonsteroidal anti-inflammatories needed physical therapy, occupational therapy, outpatient follow-up with orthopedic surgery x-ray has no acute fracture or dislocation Hypertensive urgency -Secondary to severe pain from ankle sprain as well as pain from pyelonephritis -Resumed on home medications. Patient has been given clonidine, nitroglycerin ointment 1 inch every 4 hourly if patient is nauseous Mechanical fall with musculoskeletal chest pain -As needed Nonsteroidal anti-inflammatories. Due to liver cirrhosis. Monitor patient's acetaminophen level and try to limit total less than 3 g over 24 hours Diabetes -Consistent carbohydrate diet. Fingersticks every before meals at bedtime with sliding scale coverage. -Continue long-acting insulin hyperlipidemia -Check lipid panel in the morning. Resume home meds mild intermittent asthma -Asymptomatic. Resume as needed short-acting beta agonist vitamin D deficiency -Resumed vitamin D is outpatient PTSD,depression, anxiety -No acute suicidal homicidal ideation. Resume home meds liver cirrhosis incidental finding on CT abdomen and pelvis -Check hepatitis profile. YOVANA. Antimitochondrial antibody. Anticentromere antibody. Ceruloplasmin., Ferritin, iron studies -Up with more than 3 g of acetaminophen over 24 hours -Referred to gastroenterology for further workup as outpatient moderate splenomegaly with a maximum span of 15 centimeters. -Outpatient monitoring -Check EBV, no signs of hemolytic anemia. 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 -No acute neurological symptoms. As needed pain medications. Diet: Consistent carbohydrate, 2 g sodium DVT prophylaxis: Lovenox and compression stockings CODE STATUS: Full code Vital Signs Vital Signs Date Time Temp Pulse Resp B/P (MAP) Pulse Ox O2 Delivery O2 Flow Rate FiO2 12/18/20 21:20 100.6 12/18/20 21:16 117 16 95 Room Air 12/18/20 21:15 179/77 (111) Laboratory Data Labs 24H Laboratory Tests 2 12/18/20 16:03: Immature Granulocyte % (Auto) 0.6, Neutrophils (%) (Auto) 82.3H, Lymphocytes (%) (Auto) 11.7L, Monocytes (%) (Auto) 4.6, Eosinophils (%) (Auto) 0.4, Basophils (%) (Auto) 0.4, Neutrophils # (Auto) 9.0H, Lymphocytes # (Auto) 1.3L, Monocytes # (Auto) 0.5, Eosinophils # (Auto) 0.0, Basophils # (Auto) 0.0, Nucleated Red Blood Cells % (auto) 0.0, Prothrombin Time 14.2H, Prothromb Time International Ratio 1.08, Activated Partial Thromboplast Time 31.9, Anion Gap 7L, Glomerular Filtration Rate > 60.0, Calcium Level 9.4, Total Bilirubin 1.0, Direct Bilirubin 0.3H, Aspartate Amino Transf (AST/SGOT) 14, Alanine Aminotransferase (ALT/SGPT) 29, Alkaline Phosphatase 119H, Total Creatine Kinase 48, Creatine Kinase MB < 1.0, Creatine Kinase MB Relative Index 2.08, Troponin I < 0.02, Total Protein 7.2, Albumin 3.5, Albumin/Globulin Ratio 0.9L, Lipase 61L, Thyroid Stimulating Hormone (TSH) 1.680, Free Thyroxine 1.02 12/18/20 16:52: Urine Color JOSELYN, Urine Appearance TURBIDH, Urine pH 6.0, Urine Specific [place] 1.016, Urine Protein 3+H, Urine Glucose (UA) 1+H, Urine Ketones NEGATIVE, Urine Blood 3+H, Urine Nitrite POSITIVEH, Urine Bilirubin NEGATIVE, Urine Urobilinogen 2.0H, Urine Leukocyte Esterase 3+H, Urine WBC (Auto) TNTCH, Urine RBC (Auto) TNTCH, Urine Hyaline Casts (Auto) 0, Urine Bacteria (Auto) 1+H, Urine Squamous Epithelial Cells 0, Urine Sperm (Auto) 12/18/20 21:43: CBC/BMP Laboratory Tests 12/18/20 16:03 Microbiology Microbiology 12/18/20 Urine Culture, Received Pending Home Medications Scheduled Amlodipine Besylate (Amlodipine Besylate) 10 Mg Tablet, 10 MG PO QHS C,E,Zinc,Copper 24/Om3/Lut/Dayanna (Ocuvite Adult 50 Plus Softgel) 1 Each Capsule, 1 CAP PO DAILY Cholecalciferol (Vitamin D3) (Vitamin D3) 1,000 Unit Tablet, 2,000 UNITS PO DAILY Duloxetine Hcl (Duloxetine HCl) 60 Mg Capsule.dr, 60 MG PO DAILY Insulin Aspart (Novolog Flexpen) 100 Unit/1 Ml Insuln.pen, 1 DOSE SC TID SLIDING SCALE Insulin Degludec (Tresiba Flextouch U-200) 200 Unit/1 Ml Insuln.pen, 80 UNITS SC DAILY Losartan Potassium (Losartan Potassium) 100 Mg Tablet, 100 MG PO DAILY Metformin HCl (Metformin HCl ER) 500 Mg Tab.er.24h, 1,000 MG PO BID Montelukast Sodium (Montelukast Sodium) 10 Mg Tablet, 10 MG PO DAILY Rosuvastatin Calcium (Rosuvastatin Calcium) 5 Mg Tablet, 5 MG PO DAILY Scheduled PRN Phenazopyridine HCl (Azo Urinary Pain Relief) 95 Mg Tablet, 190 MG PO TID PRN for PAIN Allergies Coded Allergies: Penicillins (Verified Allergy, Intermediate, rash, 05/22/19) codeine (Verified Allergy, Intermediate, rash, 05/22/19) Sulfa (Sulfonamide Antibiotics) (Verified Adverse Reaction, Unknown, vomiting, 05/22/19) aspirin (Verified Adverse Reaction, Unknown, upset stomach, 05/22/19) sulfamethoxazole (Verified Adverse Reaction, Unknown, vomiting/disorientation, 05/22/19) trimethoprim (Verified Adverse Reaction, Unknown, vomiting/disorientation, 05/22/19) A-FIB/CHADSVASC A-FIB History Current/History of A-Fib/PAF?: No Current PO Anticoag Therapy: No Age/Risk Factor Scoring CHADSVASC: CHADSVASC Response (Comments) Value Age Risk Factor Age 65-74 years old 1 Gender Risk Factor Female 1 Hx of CHF No 0 Hx of HTN Yes 1 Hx of Stroke/TIA/or VTE No 0 Hx of Diabetes Yes 1 Hx of Vascular Disease No 0 Total 4 Treatment Treatment ordered: NONE MARTITA JUDD MD Dec 18, 2020 22:13
[2020-12-18] MEDS: NS 1,000 ML IV SCH (22:51)
[2020-12-18 23:15] VITALS: BP 168/70
[2020-12-18] MEDS ORDERED: PILL CUTTER 1 EACH XX PRN (23:25)
[2020-12-18] MEDS: cloNIDine 0.1MG TABLET PO SCH (23:48)
[2020-12-18] MEDS: HumaLOG INSULIN (NovoLOG) PER UNIT SC SCH (23:49)
[2020-12-19] MEDS ORDERED: **hydrALAZINE** 50 MG TAB PO ONE (00:30)
[2020-12-19] MEDS: cloNIDine 0.1MG TABLET PO SCH (01:00)
[2020-12-19] MEDS: KETOROLAC 30 MG/ML 1ML VIAL IV SCH ×2 (01:00→06:17)
[2020-12-19] MEDS: NITROGLYCERIN 2% OINT 1 GM *U/D* PKT TOP SCH ×7 (03:24→22:50)
[2020-12-19 06:00] VITALS: BP 100/52
[2020-12-19 06:11] LABS: HEMATOCRIT 36.5 % (36.0-47.0); HEMOGLOBIN 11.3 g/dl (12.0-15.5); MEAN CORPUSCULAR HEMOGLOBIN 25.7 pg (27.0-33.0); PLATELET COUNT, AUTOMATED 125 10^3/uL (150-450); WHITE BLOOD COUNT 13.8 10^3/uL (4.0-10.0)
[2020-12-19] MEDS: LevoFLOXacin IV 750 MG in IV 1 EA IV SCH (06:16)
[2020-12-19 06:17] LABS: HEMATOCRIT 36.2 % (36.0-47.0)
[2020-12-19 06:36] LABS: CHOLESTEROL LEVEL 143 MG/DL (<200); CHOLESTEROL RISK RATIO 3.763 (<5); FERRITIN 170 NG/ML (8-252); HDL CHOLESTEROL 38 MG/DL (>40); IRON (FE) 11 UG/DL (50-170); LDH LACTATE DEHYDROGENASE 161 U/L (84-246); LDL CHOLESTEROL 80 MG/DL (<100); NON-HDL-C 105 MG/DL; PERCENT SATURATION 3.8 % (13.2-45.0); TOTAL IRON BINDING CAPACITY 287 UG/DL (250-450); TRIGLYCERIDES LEVEL 127 MG/DL (<150)
[2020-12-19 06:38] LABS: CALCIUM LEVEL 8.6 MG/DL (8.8-10.2); CREATININE FOR GFR 1.72 MG/DL (0.55-1.30); GLOMERULAR FILTRATION RATE 31.7 (>45); POTASSIUM SERUM 4.4 MEQ/L (3.5-5.1)
[2020-12-19 06:39] LABS: LYMPHOCYTES 8 % (16-44); NEUTROPHILS 85 % (28-66); PLATELET ESTIMATE NORMAL (NORMAL)
[2020-12-19 06:50] LABS: MONO REFLEX EBV VCA IgM NEGATIVE (NEGATIVE)
[2020-12-19] MEDS: MONTELUKAST 10 MG TAB PO SCH (08:02)
[2020-12-19] MEDS: OCUVITE 1 TAB PO SCH (08:02)
[2020-12-19] MEDS: LOSARTAN 50MG TABLET PO SCH (08:04)
[2020-12-19] MEDS: LACTOBACILLUS ACIDOPHILUS CAP (BACID) PO SCH ×3 (08:05→18:00)
[2020-12-19] MEDS: PHENAZOPYRIDINE 100 MG TAB PO SCH ×3 (08:05→20:30)
[2020-12-19] MEDS: ROSUVASTATIN 10 MG TAB (CRESTOR) PO SCH (08:06)
[2020-12-19] MEDS: DULoxetine 30 MG CAP (CYMBALTA) PO SCH (08:06)
[2020-12-19] MEDS: VITAMIN D 1,000 INTERNATIONAL UNITS TABLET PO SCH (08:08)
[2020-12-19] MEDS: NS 1,000 ML IV SCH (08:09)
[2020-12-19] MEDS: HumaLOG INSULIN (NovoLOG) PER UNIT SC SCH ×4 (08:09→20:31)
[2020-12-19] MEDS ORDERED: amLODIPine 5 MG TAB PO SCH (09:00)
[2020-12-19 09:29] LABS: VITAMIN B12 LEVEL 318 PG/ML (247-911)
[2020-12-19 09:40] LABS: HEPATITIS B SURFACE ANTIGEN NEGATIVE (NEGATIVE)
--- NOTE | 2020-12-19 09:47 | REP ---
INDICATION: liver cirrhosis r/o portal/hepatic vein thrombosis.. COMPARISON: CT 12/18/2020. TECHNIQUE: Real-time sonographic evaluation of ABDOMEN PERFORMED, WITH DUPLEX DOPPLER EVALUATION OF PORTAL VASCULATURE. FINDINGS: The gallbladder demonstrates no evidence of intraluminal sludge or calculi, wall thickening or pericholecystic fluid. There is no intrahepatic or extrahepatic biliary dilatation, common bile duct measures 4 mm in maximum diameter. The liver is mildly enlarged with a length of approximately 19 cm. There is diffuse heterogeneous echotexture with no mass identified. The pancreas is grossly unremarkable, not optimally evaluated due to overlying bowel gas. Spleen is enlarged, with a length of 14.4 cm. There is a 2.3 centimeter splenule in the region of the splenic hilum. There is no evidence of hydronephrosis, cyst, mass, or calculus in either kidney. The right kidney measures 13.6 x 6.0 x 5.6 cm. Left renal dimensions are 13.5 x 4.5 x 5.3 cm. The abdominal aorta is not seen due to overlying bowel gas. No free fluid is seen. The main portal vein measures 10 mm in diameter. The visualized splenic vein and portal veins demonstrate normal direction of flow, with normal waveforms. There is no portal vein thrombosis. Hepatic veins are patent with no thrombus. Main hepatic artery is not visualized due to overlying bowel gas. IMPRESSION: Mild hepatosplenomegaly. No ascites. No evidence of portal vein or hepatic vein thrombosis. Portal vasculature demonstrates normal direction of flow with no thrombosis. No evidence of hepatic vein thrombosis. <Electronically signed by Melquiades Roche > 12/19/20 0943
[2020-12-19 10:07] LABS: HEPATITIS C VIRUS ABY INDEX < 0.0 INDEX (<0.8)
[2020-12-19 10:08] LABS: HEPATITIS B CORE ANTIBODY IGM NEGATIVE (NEGATIVE); HIV 1&2 SCREEN CENTAUR NEGATIVE (NEGATIVE)
[2020-12-19 10:09] LABS: HEPATITIS A ANTIBODY IGM NEGATIVE (NEGATIVE)
--- NOTE | 2020-12-19 12:28 | IPNPDOC ---
Text Note Date of Service The patient was seen on 12/19/20. NOTE SUBJECTIVE: -Feels much better, conversational, asking when she will be discharged. PHYSICAL EXAMINATION: VITAL SIGNS: See below GENERAL APPEARANCE: Awake, alert, oriented 3, answering questions appropriately. No conversational dyspnea. No pallor, icterus or jaundice HEENT: No JVD, thyromegaly extraocular muscles are intact. Moist mucous membranes. No cervical lymphadenopathy. Pharyngeal erythema or tonsillar exudates. No stridor CARDIOVASCULAR: S1, S2 regular rate rhythm, no murmurs, rubs or gallops LUNGS: Air entry is equal bilaterally. No adventitious breath sounds clear to auscultation bronchial breath sounds ABDOMEN: Positive bowel sounds, soft . Has moderate CVA tenderness. No rebound, guarding, mild splenomegaly EXTREMITIES: No cyanosis or clubbing. Range of motion limited due to right ankle sprain with minimal swelling. No significant erythema. LABORATORY DATA: Reviewed. Cr 1.72 IMAGING: Exam: CT Abdomen And Pelvis With Contrast Exam date and time: 12/18/2020 5:59 PM Age: 65 years old Clinical indication: Injury or trauma; Fall; Blunt; Generalized TECHNIQUE: Imaging protocol: Computed tomography of the abdomen and pelvis with contrast. Radiation optimization: All CT scans at this facility use at least one of these dose optimization techniques: automated exposure control; mA and/or kV adjustment per patient size (includes targeted exams where dose is matched to clinical indication); or iterative reconstruction. Contrast material: ISOVUE 370; Contrast volume: 100 ml; Contrast route: INTRAVENOUS (IV); COMPARISON: No relevant prior studies available. FINDINGS: Liver: Examination of the liver demonstrates a lobular surface contour, and enlargement of the left and caudate lobes, findings consistent with cirrhosis. Gallbladder and bile ducts: Normal. No calcified stones. No ductal dilation. Pancreas: Normal. No ductal dilation. Spleen: There is moderate splenomegaly with a maximum span of 15 centimeters. No focal abnormalities demonstrated. Adrenal glands: Normal. No mass. Kidneys and ureters: Perinephric inflammatory changes on the left associated with mild dilatation of the left renal pelvis and a suggestion of hazy decreased density in the posteromedial renal parenchyma. Findings may be posttraumatic or indicate pyelonephritis in the appropriate clinical setting. Stomach and bowel: Unremarkable. No obstruction. No mucosal thickening. Appendix: No evidence of appendicitis. Intraperitoneal space: Unremarkable. No free air. No significant fluid collection. Vasculature: The aortoiliac vessels demonstrate mild atherosclerotic calcification. Lymph nodes: Unremarkable. No enlarged lymph nodes. Urinary bladder: There is thickening of the bladder wall with perivesicular inflammatory changes consistent with acute cystitis. Reproductive: There has been a hysterectomy. Bones/joints: Gwgv-ye-lcjdsovb central spinal stenosis L2-L3, L3-L4. Bilateral facet joint arthropathy and disc space narrowing L5-S1. Soft tissues: Unremarkable. IMPRESSION: 1. Examination of the liver demonstrates a lobular surface contour, and enlargement of the left and caudate lobes, findings consistent with cirrhosis. 2. There is moderate splenomegaly with a maximum span of 15 centimeters. No focal abnormalities demonstrated. 3. There has been a hysterectomy. 4. Perinephric inflammatory changes on the left associated with mild dilatation of the left renal pelvis and a suggestion of hazy decreased density in the posteromedial renal parenchyma. Findings may be posttraumatic or indicate pyelonephritis in the appropriate clinical setting. 5. There is thickening of the bladder wall with perivesicular inflammatory changes consistent with acute cystitis. Electronically signed by: Lexx Rider On 12/18/2020 18:35:41 PM Exam: CT Chest With Contrast; Diagnostic Exam date and time: 12/18/2020 5:59 PM Age: 65 years old Clinical indication: Injury or trauma; Fall; Blunt trauma (contusions or hematomas) TECHNIQUE: Imaging protocol: Diagnostic computed tomography of the chest with contrast. Radiation optimization: All CT scans at this facility use at least one of these dose optimization techniques: automated exposure control; mA and/or kV adjustment per patient size (includes targeted exams where dose is matched to clinical indication); or iterative reconstruction. Contrast material: ISOVUE 370; Contrast volume: 100 ml; Contrast route: INTRAVENOUS (IV); COMPARISON: US Chest echo B 09/15/2019 9:42 AM FINDINGS: Lungs: Unremarkable. No consolidation. No masses. Pleural spaces: Unremarkable. No pneumothorax. No pleural effusion. Heart: Unremarkable. No cardiomegaly. No pericardial effusion. Pulmonary arteries: There are no pulmonary emboli. Aorta: There is no aortic dissection or aneurysm. Lymph nodes: Unremarkable. No enlarged lymph nodes. Liver: Examination of the liver demonstrates a lobular surface contour, and enlargement of the left and caudate lobes, findings consistent with cirrhosis. Spleen: There is lszy-xj-cgeaetel splenomegaly with a maximum span of 15 centimeters. No focal abnormalities demonstrated. Bones/joints: The spine demonstrates mild degenerative changes. The spine demonstrates mild degenerative changes. Soft tissues: Unremarkable. IMPRESSION: 1. There is no aortic dissection or aneurysm. 2. There are no pulmonary emboli. 3. No acute infiltrates. 4. Hepatic cirrhosis. 5. There is jatq-kc-nfrkbqxo splenomegaly. Electronically signed by: Lexx Rider On 12/18/2020 18:29:36 PM INDICATION: trauma COMPARISON: None. TECHNIQUE: AP, lateral, bilateral oblique views. FINDINGS: Lateral swelling and age-related degenerative changes noted. No acute fracture or dislocation is appreciated. Ankle mortise intact. IMPRESSION: Swelling and degenerative changes. No acute fracture or dislocation. <Electronically signed by Donny Kaminski > 12/18/20 1629 INDICATION: trauma COMPARISON: None. TECHNIQUE: AP, lateral, bilateral oblique views of the left knee. FINDINGS: Age-related changes noted. No acute fracture or dislocation. No definite effusion. IMPRESSION: Age-related degenerative changes. No acute fracture or dislocation. <Electronically signed by Donny Kaminski > 12/18/20 1630 MICROBIOLOGY: Please see below. ASSESSMENT/PLAN: 65-year-old admitted with L pyelonephritis. Plan: Acute left-sided pyelonephritis -Patient has a penicillin and sulfur allergy -continue Levaquin IV daily -Pyridium for symptomatic relief -Antiemetics if needed for nausea. -Await urine culture and blood culture results and de-escalate antibiotics once urine cultures are finalized -DC toradol i/s/o NARCISA NARCISA, likely prerenal -dc toradol -IVF @ 100cc/hr -abx for pyelo as noted above -monitor daily BMP Right Ankle sprain -Touch toe weightbearing. Longboat and crutches, elevate affected extremity and apply ice for symptomatic relief. Nonsteroidal anti-inflammatories needed physical therapy, occupational therapy, outpatient follow-up with orthopedic surgery x-ray has no acute fracture or dislocation -ambulating well within her room Hypertensive urgency -Secondary to severe pain from ankle sprain as well as pain from pyelonephritis -Resumed on home medications. Mechanical fall with musculoskeletal chest pain -PRN acetaminophen and also morphine PRN for severe pain. -Monitor patient's acetaminophen level and try to limit total less than 4 g over 24 hours Diabetes -Consistent carbohydrate diet. Fingersticks every before meals at bedtime with sliding scale coverage. -Continue long-acting insulin hyperlipidemia -Check lipid panel in the morning. Resume home meds mild intermittent asthma -Asymptomatic. Resume as needed short-acting beta agonist vitamin D deficiency -Resumed vitamin D is outpatient PTSD,depression, anxiety -No acute suicidal homicidal ideation. Resume home meds liver cirrhosis: incidental finding on CT abdomen and pelvis -f/u hepatitis profile. YOVANA. Antimitochondrial antibody. Anticentromere antibody. Ceruloplasmin., Ferritin, iron studies -Up with more than 4 g of acetaminophen over 24 hours -Refer to gastroenterology for further workup as outpatient moderate splenomegaly with a maximum span of 15 centimeters. -Outpatient monitoring -Check EBV, no signs of hemolytic anemia. aortoiliac atherosclerosis -Optimize BP, glycemic control and cholesterol management Dcdv-wm-itooumzw central spinal stenosis L2-L3, L3-L4. -No acute neurological symptoms. As needed pain medications. Diet: Consistent carbohydrate, 2 g sodium DVT prophylaxis: Lovenox and compression stockings CODE STATUS: Full code VS,Fishbone, I+O VS, Fishbone, I+O Laboratory Tests 12/18/20 16:03 12/19/20 05:43 Vital Signs Date Time Temp Pulse Resp B/P (MAP) Pulse Ox O2 Delivery O2 Flow Rate FiO2 12/19/20 12:00 119/63 12/19/20 06:00 97.6 74 17 96 Room Air I&O- Last 24 Hours up to 6 AM 12/19/20 06:00 Intake Total 900 ml Output Total 150 ml Balance 750 ml LUPE POOLE MD Dec 19, 2020 12:28
[2020-12-19 14:00] VITALS: BP 100/56
[2020-12-19] MEDS ORDERED: ENOXAPARIN 40MG/0.4ML SYRINGE (J1650 PER 10MG) SC SCH (21:00)
[2020-12-19 22:00] VITALS: BP 138/67
[2020-12-20] MEDS: NITROGLYCERIN 2% OINT 1 GM *U/D* PKT TOP SCH ×2 (04:00→08:00)
[2020-12-20 05:54] LABS: BASO % 0.2 % (0.0-1.0); EOS % 0.4 % (0.0-3.0); HEMATOCRIT 34.4 % (36.0-47.0); HEMOGLOBIN 10.7 g/dl (12.0-15.5); LYMPH # 0.9 10^3/uL (1.5-5.0); LYMPH % 9.5 % (24.0-44.0); MEAN CORPUSCULAR HEMOGLOBIN 25.7 pg (27.0-33.0); MEAN CORPUSCULAR HGB CONC 31.1 g/dl (32.0-36.5); MEAN CORPUSCULAR VOLUME 82.5 fl (80.0-96.0); MONO # 0.6 10^3/uL (0.0-0.8); MONO % 6.6 % (2.0-8.0); NEUTROPHILS # 7.8 10^3/uL (1.5-8.5); NEUTROPHILS % 82.7 % (36.0-66.0); PLATELET COUNT, AUTOMATED 128 10^3/uL (150-450); RED BLOOD COUNT 4.17 10^6/uL (4.00-5.40); WHITE BLOOD COUNT 9.4 10^3/uL (4.0-10.0)
[2020-12-20 06:00] VITALS: BP 138/64
[2020-12-20] MEDS: LevoFLOXacin IV 750 MG in IV 1 EA IV SCH (06:03)
[2020-12-20 06:17] LABS: CREATININE FOR GFR 1.3 MG/DL (0.55-1.30); GLOMERULAR FILTRATION RATE 43.8 (>45); POTASSIUM SERUM 3.8 MEQ/L (3.5-5.1)
[2020-12-20] MEDS ORDERED: RISATAB3 PO (08:36)
[2020-12-20] MEDS ORDERED: CIPR-249 PO (08:36)
[2020-12-20] MEDS: VITAMIN D 1,000 INTERNATIONAL UNITS TABLET PO SCH (09:13)
[2020-12-20] MEDS: PHENAZOPYRIDINE 100 MG TAB PO SCH (09:13)
[2020-12-20] MEDS: OCUVITE 1 TAB PO SCH (09:13)
[2020-12-20] MEDS: MONTELUKAST 10 MG TAB PO SCH (09:14)
[2020-12-20] MEDS: LACTOBACILLUS ACIDOPHILUS CAP (BACID) PO SCH (09:14)
[2020-12-20] MEDS: DULoxetine 30 MG CAP (CYMBALTA) PO SCH (09:15)
[2020-12-20 09:16] VITALS: BP 135/80
[2020-12-20] MEDS: LOSARTAN 50MG TABLET PO SCH (09:16)
[2020-12-20] MEDS: ROSUVASTATIN 10 MG TAB (CRESTOR) PO SCH (09:16)
[2020-12-20] MEDS: HumaLOG INSULIN (NovoLOG) PER UNIT SC SCH (09:18)
[2020-12-20] MEDS ORDERED: ONDA4TAB6 PO (11:44)
--- NOTE | 2020-12-20 12:02 | DS.PDOC ---
Discharge Summary General Date of Admission Dec 18, 2020 at 21:39 Date of Discharge 12/20/2020 Attending Physician: LUPE POOLE MD Discharge Summary PROCEDURES PERFORMED DURING STAY: None ADMITTING DIAGNOSES: L pyelonephritis R ankle sprain DISCHARGE DIAGNOSES: L pyelonephritis R ankle sprain IDDM Hypertension Hyperlipidemia Mild intermittent asthma Vitamin D deficiency PTSD Depression Anxiety Liver cirrhosis Moderate splenomegaly Aortoiliac atherosclerosis Dkrz-mc-sscxenzi central spinal stenosis L2-L3, L3-L4 and bilateral facet joint arthropathy and disc space narrowing L5-S1. COMPLICATIONS/CHIEF COMPLAINT: Pyelonephritis,R Ankle Sprain. HISTORY OF PRESENT ILLNESS: 65-year-old W who presented to the [facility] ED with worsening pain on the left flank, low-grade fevers at home, chills and increasing urinary frequency 4-5 days prior to presentation. She also had recently fallen when she tripped on a panda paw hich was a toy for the pool that the children wanted to sleep with and complained of musculoskeletal pain on the left side without any radiation and had a right ankle sprain and had been using a boot and taking ibuprofen and Tylenol at home. She had blood work done at Dr. Porter's office on Saturday morning for her diabetes, but did not get a call about her urinalysis. She has had worsening pain with decreased appetite and had an episode of nausea on the day of presentation prompting her to come into the emergency room for evaluation. HOSPITAL COURSE: In emergency room, patient had a temperature 102.5, tachycardic with 117 bpm, tachypneic with respiratory rate of 24, and complained of chest wall on the left after her mechanical fall. CT chest, abdomen and pelvis showed no pulmonary embolism, positive L pyelonephritis and cystitis. An incidental finding of liver cirrhosis and splenomegaly was also noted . Due to allergies to penicillin, Patient was given ciprofloxacin and morphine for pain and admitted for acute left-sided pyelonephritis, hypertensive urgency, musculoskeletal chest pain with negative troponin and EKG, and right ankle sprain. While inpatient, she was placed on IV levaquin and urine culture eventually grew pansensitive E.coli and was switched to cipro 500mg BID with plan for a total 14 day course given sepsis with pyelonephritis. Her R ankle sprain improved, and she worked with PT and did well on ambulation. She is now being discharged home to follow up with her PCP, and will need referral to hepatology for evaluation and management the liver pathology noted on imaging. Hepatitis serologies for Hep A,B,C were all negative. EBV was still pending. No genetic and auto-immune studies were sent as they take days to result and would warrant outpatient further evaluation and will defer to PCP for hepatology evaluation. DISCHARGE MEDICATIONS: Please see below. ALLERGIES: Please see below. PHYSICAL EXAMINATION ON DISCHARGE: VITAL SIGNS: Please see below. GENERAL APPEARANCE: Awake, alert, oriented 3, answering questions appropriately. No conversational dyspnea. No pallor, icterus or jaundice HEENT: No JVD, thyromegaly extraocular muscles are intact. Moist mucous membranes. No cervical lymphadenopathy. Pharyngeal erythema or tonsillar exudates. No stridor CARDIOVASCULAR: S1, S2 regular rate rhythm, no murmurs, rubs or gallops LUNGS: Air entry is equal bilaterally. No adventitious breath sounds clear to auscultation bronchial breath sounds ABDOMEN: Positive bowel sounds, soft, NTND. No CVA tenderness. No rebound, guarding. EXTREMITIES: No cyanosis or clubbing. Range of motion limited due to right ankle sprain with minimal swelling. No significant erythema. LABORATORY DATA: Please see below. IMAGING: Exam: CT Abdomen And Pelvis With Contrast Exam date and time: 12/18/2020 5:59 PM Age: 65 years old Clinical indication: Injury or trauma; Fall; Blunt; Generalized TECHNIQUE: Imaging protocol: Computed tomography of the abdomen and pelvis with contrast. Radiation optimization: All CT scans at this facility use at least one of these dose optimization techniques: automated exposure control; mA and/or kV adjustment per patient size (includes targeted exams where dose is matched to clinical indication); or iterative reconstruction. Contrast material: ISOVUE 370; Contrast volume: 100 ml; Contrast route: INTRAVENOUS (IV); COMPARISON: No relevant prior studies available. FINDINGS: Liver: Examination of the liver demonstrates a lobular surface contour, and enlargement of the left and caudate lobes, findings consistent with cirrhosis. Gallbladder and bile ducts: Normal. No calcified stones. No ductal dilation. Pancreas: Normal. No ductal dilation. Spleen: There is moderate splenomegaly with a maximum span of 15 centimeters. No focal abnormalities demonstrated. Adrenal glands: Normal. No mass. Kidneys and ureters: Perinephric inflammatory changes on the left associated with mild dilatation of the left renal pelvis and a suggestion of hazy decreased density in the posteromedial renal parenchyma. Findings may be posttraumatic or indicate pyelonephritis in the appropriate clinical setting. Stomach and bowel: Unremarkable. No obstruction. No mucosal thickening. Appendix: No evidence of appendicitis. Intraperitoneal space: Unremarkable. No free air. No significant fluid collection. Vasculature: The aortoiliac vessels demonstrate mild atherosclerotic calcification. Lymph nodes: Unremarkable. No enlarged lymph nodes. Urinary bladder: There is thickening of the bladder wall with perivesicular inflammatory changes consistent with acute cystitis. Reproductive: There has been a hysterectomy. Bones/joints: Nerh-br-onifafgc central spinal stenosis L2-L3, L3-L4. Bilateral facet joint arthropathy and disc space narrowing L5-S1. Soft tissues: Unremarkable. IMPRESSION: 1. Examination of the liver demonstrates a lobular surface contour, and enlargement of the left and caudate lobes, findings consistent with cirrhosis. 2. There is moderate splenomegaly with a maximum span of 15 centimeters. No focal abnormalities demonstrated. 3. There has been a hysterectomy. 4. Perinephric inflammatory changes on the left associated with mild dilatation of the left renal pelvis and a suggestion of hazy decreased density in the posteromedial renal parenchyma. Findings may be posttraumatic or indicate pyelonephritis in the appropriate clinical setting. 5. There is thickening of the bladder wall with perivesicular inflammatory changes consistent with acute cystitis. Electronically signed by: Lexx Rider On 12/18/2020 18:35:41 PM Exam: CT Chest With Contrast; Diagnostic Exam date and time: 12/18/2020 5:59 PM Age: 65 years old Clinical indication: Injury or trauma; Fall; Blunt trauma (contusions or hematomas) TECHNIQUE: Imaging protocol: Diagnostic computed tomography of the chest with contrast. Radiation optimization: All CT scans at this facility use at least one of these dose optimization techniques: automated exposure control; mA and/or kV adjustment per patient size (includes targeted exams where dose is matched to clinical indication); or iterative reconstruction. Contrast material: ISOVUE 370; Contrast volume: 100 ml; Contrast route: INTRAVENOUS (IV); COMPARISON: US Chest echo B 09/15/2019 9:42 AM FINDINGS: Lungs: Unremarkable. No consolidation. No masses. Pleural spaces: Unremarkable. No pneumothorax. No pleural effusion. Heart: Unremarkable. No cardiomegaly. No pericardial effusion. Pulmonary arteries: There are no pulmonary emboli. Aorta: There is no aortic dissection or aneurysm. Lymph nodes: Unremarkable. No enlarged lymph nodes. Liver: Examination of the liver demonstrates a lobular surface contour, and enlargement of the left and caudate lobes, findings consistent with cirrhosis. Spleen: There is ussq-nk-qxealsci splenomegaly with a maximum span of 15 centimeters. No focal abnormalities demonstrated. Bones/joints: The spine demonstrates mild degenerative changes. The spine demonstrates mild degenerative changes. Soft tissues: Unremarkable. IMPRESSION: 1. There is no aortic dissection or aneurysm. 2. There are no pulmonary emboli. 3. No acute infiltrates. 4. Hepatic cirrhosis. 5. There is bhdh-rq-jkzvfsxu splenomegaly. Electronically signed by: Lexx Rider On 12/18/2020 18:29:36 PM INDICATION: trauma COMPARISON: None. TECHNIQUE: AP, lateral, bilateral oblique views. FINDINGS: Lateral swelling and age-related degenerative changes noted. No acute fracture or dislocation is appreciated. Ankle mortise intact. IMPRESSION: Swelling and degenerative changes. No acute fracture or dislocation. INDICATION: trauma COMPARISON: None. TECHNIQUE: AP, lateral, bilateral oblique views of the left knee. FINDINGS: Age-related changes noted. No acute fracture or dislocation. No definite effusion. IMPRESSION: Age-related degenerative changes. No acute fracture or dislocation. Abdominal US: The gallbladder demonstrates no evidence of intraluminal sludge or calculi, wall thickening or pericholecystic fluid. There is no intrahepatic or extrahepatic biliary dilatation, common bile duct measures 4 mm in maximum diameter. The liver is mildly enlarged with a length of approximately 19 cm. There is diffuse heterogeneous echotexture with no mass identified. The pancreas is grossly unremarkable, not optimally evaluated due to overlying bowel gas. Spleen is enlarged, with a length of 14.4 cm. There is a 2.3 centimeter splenule in the region of the splenic hilum. There is no evidence of hydronephrosis, cyst, mass, or calculus in either kidney. The right kidney measures 13.6 x 6.0 x 5.6 cm. Left renal dimensions are 13.5 x 4.5 x 5.3 cm. The abdominal aorta is not seen due to overlying bowel gas. No free fluid is seen. The main portal vein measures 10 mm in diameter. The visualized splenic vein and portal veins demonstrate normal direction of flow, with normal waveforms. There is no portal vein thrombosis. Hepatic veins are patent with no thrombus. Main hepatic artery is not visualized due to overlying bowel gas. IMPRESSION: Mild hepatosplenomegaly. No ascites. No evidence of portal vein or hepatic vein thrombosis. Portal vasculature demonstrates normal direction of flow with no thrombosis. No evidence of hepatic vein thrombosis. PROGNOSIS: Good ACTIVITY: As tolerated DIET: 2g sodium DISCHARGE PLAN: Home with cipro course. PCP follow up for referral to hepatology for cirrhosis. DISPOSITION: Home DISCHARGE INSTRUCTIONS: Home with cipro course. PCP follow up for referral to hepatology for cirrhosis. ITEMS TO FOLLOWUP ON ON OUTPATIENT: Resolution of L pyelonephritis Hepatology referral by PCP for incidentally found likely cirrhosis DISCHARGE CONDITION: Stable TIME SPENT ON DISCHARGE: 44 minutes. Vital Signs/I&Os Vital Signs Date Time Temp Pulse Resp B/P (MAP) Pulse Ox O2 Delivery O2 Flow Rate FiO2 12/20/20 06:00 99.1 66 18 138/64 (88) 92 Room Air I&O- Last 24 Hours up to 6 AM 12/20/20 05:59 Intake Total 3560 ml Output Total 250 ml Balance 3310 ml Laboratory Data Labs 24H Laboratory Tests 2 12/19/20 09:19: Bedside Glucose (Misc Panel) 371H 12/19/20 11:39: Bedside Glucose (Misc Panel) 267H 12/19/20 16:52: Bedside Glucose (Misc Panel) 207H 12/19/20 20:09: Bedside Glucose (Misc Panel) 407H 12/20/20 05:32: Immature Granulocyte % (Auto) 0.6, Neutrophils (%) (Auto) 82.7H, Lymphocytes (%) (Auto) 9.5L, Monocytes (%) (Auto) 6.6, Eosinophils (%) (Auto) 0.4, Basophils (%) (Auto) 0.2, Neutrophils # (Auto) 7.8, Lymphocytes # (Auto) 0.9L, Monocytes # (Auto) 0.6, Eosinophils # (Auto) 0.0, Basophils # (Auto) 0.0, Nucleated Red Blood Cells % (auto) 0.0, Anion Gap 7L, Glomerular Filtration Rate 43.8L, Calcium Level 8.0L CBC/BMP Laboratory Tests 12/20/20 05:32 FSBS Laboratory Tests Test 12/19/20 09:19 12/19/20 11:39 12/19/20 16:52 12/19/20 20:09 Range/Units Bedside Glucose (Misc Panel) 371 267 207 407 80-115 MG/DL Microbiology Microbiology 12/18/20 Urine Culture - Final, Complete Escherichia Coli Discharge Medications Scheduled Amlodipine Besylate (Amlodipine Besylate) 10 Mg Tablet, 10 MG PO QHS, (Reported) C,E,Zinc,Copper 24/Om3/Lut/Dayanna (Ocuvite Adult 50 Plus Softgel) 1 Each Capsule, 1 CAP PO DAILY, (Reported) Cholecalciferol (Vitamin D3) (Vitamin D3) 1,000 Unit Tablet, 2,000 UNITS PO DAILY, (Reported) Ciprofloxacin HCl (Cipro) 500 Mg Tablet, 500 MG PO BID@ Duloxetine Hcl (Duloxetine HCl) 60 Mg Capsule.dr, 60 MG PO DAILY, (Reported) Insulin Aspart (Novolog Flexpen) 100 Unit/1 Ml Insuln.pen, 1 DOSE SC TID, (Reported) SLIDING SCALE Insulin Degludec (Tresiba Flextouch U-200) 200 Unit/1 Ml Insuln.pen, 80 UNITS SC DAILY, (Reported) L.acidoph/L.bulg/B.bif/S.therm (Debbie-Bid Caplet) 1 Each Tablet, 1 EA PO WM Losartan Potassium (Losartan Potassium) 100 Mg Tablet, 100 MG PO DAILY, (Reported) Metformin HCl (Metformin HCl ER) 500 Mg Tab.er.24h, 1,000 MG PO BID, (Reported) Montelukast Sodium (Montelukast Sodium) 10 Mg Tablet, 10 MG PO DAILY, (Reported) Rosuvastatin Calcium (Rosuvastatin Calcium) 5 Mg Tablet, 5 MG PO DAILY, (Reported) Scheduled PRN Ondansetron (Ondansetron Odt) 4 Mg Tab.rapdis, 4 MG PO Q6-8HP PRN for nausea/vomiting Phenazopyridine HCl (Azo Urinary Pain Relief) 95 Mg Tablet, 190 MG PO TID PRN for PAIN, (Reported) Allergies Coded Allergies: Penicillins (Verified Allergy, Intermediate, rash, 05/22/19) codeine (Verified Allergy, Intermediate, rash, 05/22/19) Sulfa (Sulfonamide Antibiotics) (Verified Adverse Reaction, Unknown, vomiting, 05/22/19) aspirin (Verified Adverse Reaction, Unknown, upset stomach, 05/22/19) sulfamethoxazole (Verified Adverse Reaction, Unknown, vomiting/disorientation, 05/22/19) trimethoprim (Verified Adverse Reaction, Unknown, vomiting/disorientation, 05/22/19) LUPE POOLE MD Dec 20, 2020 08:48
[2020-12-21] MEDS ORDERED: CIPROFLOXACIN 500MG TABLET PO SCH (06:00)
[2020-12-21 16:08] LABS: ALPHA 1 ANTITRYPSIN 196 mg/dL (101-187); ANTI CENTROMERE ANTIBODY <0.2 AI (0.0-0.9); ANTI-MITOCHONDRIAL ANTIBODY <20.0 Units (0.0-20.0); ANTI-SMOOTH MUSCLE ANTIBODY 4 Units (0-19); ANTINUCLEAR ANTIBODIES DIRECT Negative (Negative); CERULOPLASMIN 30.7 mg/dL (19.0-39.0); HAPTOGLOBIN 254 mg/dL (37-355); HOMOCYST(E)INE SERUM 8.2 umol/L (0.0-17.2)
== END 2020-12-20 11:41 | disposition home or self-care (01) | DRG 690 ==
LOC: M ED 15:28 → M ED INP 21:39 → ENRESERVTM 22:42 → M MSPAV 23:17
PROVIDERS: ADMIT General Practice; ATTEND Internal Medicine
DX: N10 Acute pyelonephritis (principal); N17.9 Acute kidney failure, unspecified; E11.9 Type 2 diabetes mellitus without complications; S93.401A Sprain of unspecified ligament of right ankle, initial encounter; I16.0 Hypertensive urgency; K74.60 Unspecified cirrhosis of liver; I10 Essential (primary) hypertension; E55.9 Vitamin D deficiency, unspecified; F41.9 Anxiety disorder, unspecified; F32.9 Major depressive disorder, single episode, unspecified; E78.5 Hyperlipidemia, unspecified; J45.20 Mild intermittent asthma, uncomplicated; F43.10 Post-traumatic stress disorder, unspecified; I70.90 Unspecified atherosclerosis; R16.1 Splenomegaly, not elsewhere classified; W18.41XA Slipping, tripping and stumbling without falling due to stepping on object, initial encounter; Y92.009 Unspecified place in unspecified non-institutional (private) residence as the place of occurrence of the external cause; Z79.899 Other long term (current) drug therapy; Z88.0 Allergy status to penicillin; Z88.5 Allergy status to narcotic agent; Z88.2 Allergy status to sulfonamides; Z88.8 Allergy status to other drugs, medicaments and biological substances

== ENCOUNTER → 2020-12-23 | Outpatient (REF) | payer MEDICARE, OTHER ==
[~2020-12-23] MED LIST changes: +AMLO1TAB25 PO; +AZO-95TA3 PO; +CIPR-249 PO; +D31000TA2 PO; +LOSA100T50 PO; +NOVOINJ3 SC; +ONDA4TAB6 PO; +RISATAB3 PO
[2020-12-23 15:54] LABS: HEMATOCRIT 43.7 % (36.0-47.0); HEMOGLOBIN 13.8 g/dl (12.0-15.5); LYMPH % 20.5 % (24.0-44.0); MEAN CORPUSCULAR HEMOGLOBIN 25.7 pg (27.0-33.0); MEAN CORPUSCULAR HGB CONC 31.6 g/dl (32.0-36.5); MEAN CORPUSCULAR VOLUME 81.5 fl (80.0-96.0); NEUTROPHILS % 66.8 % (36.0-66.0); PLATELET COUNT, AUTOMATED 236 10^3/uL (150-450); RED BLOOD COUNT 5.36 10^6/uL (4.00-5.40); WHITE BLOOD COUNT 10.8 10^3/uL (4.0-10.0)
[2020-12-23 15:55] LABS: BASO # 0.1 10^3/uL (0.0-0.2); BASO % 0.8 % (0.0-1.0); EOS # 0.3 10^3/uL (0.0-0.5); EOS % 3.2 % (0.0-3.0); LYMPH # 2.2 10^3/uL (1.5-5.0); MONO # 0.7 10^3/uL (0.0-0.8); MONO % 6.3 % (2.0-8.0); NEUTROPHILS # 7.2 10^3/uL (1.5-8.5)
[2020-12-23 16:00] LABS: INR 1.03; PROTHROMBIN TIME 13.7 SECONDS (12.5-14.3)
[2020-12-23 16:16] LABS: ALBUMIN 3.4 GM/DL (3.2-5.2); ALT/SGPT 39 U/L (12-78); BILIRUBIN,TOTAL 0.7 MG/DL (0.2-1.0); BLOOD UREA NITROGEN 16 MG/DL (7-18); CALCIUM LEVEL 9.6 MG/DL (8.8-10.2); CARBON DIOXIDE LEVEL 25 MEQ/L (21-32); CHLORIDE LEVEL 107 MEQ/L (98-107); CREATININE FOR GFR 0.96 MG/DL (0.55-1.30); GLOMERULAR FILTRATION RATE > 60.0 (>45); GLUCOSE, FASTING 193 MG/DL (70-100); POTASSIUM SERUM 3.7 MEQ/L (3.5-5.1); SODIUM LEVEL 141 MEQ/L (136-145); TOTAL PROTEIN 7.5 GM/DL (6.4-8.2)
== END ==
LOC: M SFHCPLAZ 12:06
PROVIDERS: ATTEND Family Medicine
DX: R16.2 Hepatomegaly with splenomegaly, not elsewhere classified (principal); N12 Tubulo-interstitial nephritis, not specified as acute or chronic